=== PATIENT | female | born 1970 ===

== ENCOUNTER 2020-08-14 11:19 | Day surgery (SDC) | payer OTHER, SELFPAY ==
[2020-08-10 09:01] VITALS: BMI 29.7
--- NOTE | 2020-08-13 11:56 | HO.ANESPROP2 ---
Documented by User: Val Boateng 08/13/20 11:57 HPI - Anesthesia Eval Consult details Narrative: 50yo F for Colonoscopy PMFSH Past Medical History Medical History Fatty liver Hiatal hernia Iron deficiency anemia Low blood sugar Surgical History Surgical History Hx of cholecystectomy Hx of esophagogastroduodenoscopy Hx of gastric bypass Hx of laparoscopic gastric banding Social History Social History Smoking Status: Unknown if ever smoked Use of substances other than those prescribed or required for medical reasons: No Advance Directives: No Advance Directives Information Provided: No Advance Directives on File: No Meds Allergies Allergy/AdvReac Type Severity Reaction Status Date / Time No Known Allergies Allergy Unverified 08/10/20 09:00 [NO KNOWN ALLERGIES] Home Medications Medication Instructions Recorded Confirmed Type ferrous sulfate [iron] 325 mg PO DAILY 08/10/20 08/10/20 History Exam Exam Date and Time: August 13, 2020 1156 Height,Weight and Vital Signs: Height 5 ft 5 in Weight 81.193 kg Pertinent Lab Results Pertinent Lab Results: Laboratory Tests 04/20/20 09:45 WBC 4.0 L Hgb 9.0 L Hct 31.9 L Plt Count 152 L Assessment and Plan Assessment Anesthesia Assessment: Chart Reviewed Documented by User: Karol Burleson 08/14/20 11:52 PMFSH Past Medical History Medical History Fatty liver Hiatal hernia Iron deficiency anemia Low blood sugar Surgical History Surgical History Hx of cholecystectomy Hx of esophagogastroduodenoscopy Hx of gastric bypass Hx of laparoscopic gastric banding Social History Social History Smoking Status: Unknown if ever smoked Use of substances other than those prescribed or required for medical reasons: No Advance Directives: No Advance Directives Information Provided: No Advance Directives on File: No Meds Allergies Allergy/AdvReac Type Severity Reaction Status Date / Time No Known Allergies Allergy Unverified 08/10/20 09:00 [NO KNOWN ALLERGIES] Home Medications Medication Instructions Recorded Confirmed Type ferrous sulfate [iron] 325 mg PO DAILY 08/10/20 08/10/20 History Exam Airway Mallampati Class: II TM Dist: >3cm Neck ROM: Full Assessment and Plan Assessment Anesthesia Assessment: Anesthesia Plan Discussed and Chart Reviewed Final Anesthetic Review NPO: Yes ASA Class: II Final Preanesthetic Review: No Changes in Pt Med Stat, Meds/Allgs Chart Reviewed, Consent Obtained/Reviewed and Anes Risks/Benef Reviewed Patient Risk: Low Procedure Risk: Low Assessment/Block/Sedation in SS: Assess/Block/Sedation-SS Anesthetic Plan Anesthetic Plan: MAC: Disposition: Standard PACU
[2020-08-14] VITALS (7 sets, daily range): BP systolic 91–139; BP diastolic 46–69; PULSE 58–67; RESP 16–18; TEMP 36.2–36.8; O2SAT 98–100
[2020-08-14] MEDS: Lactated Ringers 1,000 ML 100 ML IVCONT (12:01)
--- NOTE | 2020-08-14 13:27 | PM.OP ---
Brief Operative Note Date of Service: 08/14/20 Pre-op diagnosis: Screening Post-op diagnosis: other (Diverticulosis, Internal hemorrhoids) Procedure: Colonoscopy to the cecum and TI Surgeon: Alex Peter Anesthesia: MAC Estimated blood loss (mL): 0 Pathology: none sent Condition: stable Disposition: PACU
--- NOTE | 2020-08-14 14:01 | OP_ITS ---
SURGEON: Alex Peter MD INDICATIONS: The patient presents for evaluation of colorectal cancer screening. Full consent has been obtained from her for this, including risks of bleeding and perforation. PREOPERATIVE DIAGNOSIS: Colorectal cancer screening. POSTOPERATIVE DIAGNOSIS: Colorectal cancer screening, sigmoid diverticulosis, and internal hemorrhoids. PROCEDURE PERFORMED: Colonoscopy to the cecum and terminal ileum. ESTIMATED BLOOD LOSS: COMPLICATIONS: ANESTHESIA: Monitored anesthesia care. ASSISTANTS: SPECIMENS: DESCRIPTION OF PROCEDURE: The patient was placed in the left lateral decubitus position. The digital rectal exam revealed no abnormalities. An Olympus video pediatric colonoscope was entered into the rectum and advanced easily to the cecum. Once in the cecum, I did identify normal-appearing cecal pouch with appendiceal orifice and a normal-appearing ileocecal valve. The terminal ileum was cannulated and appeared normal. The scope was withdrawn back in the colon. The entire cecum and ileocecal valve appeared normal. The scope was then slowly withdrawn assessing all mucosal surfaces carefully. Preparation was excellent. I did not visualize any sign of polyps, colitis, nor angiodysplasia. There were occasional diverticula noted in the sigmoid colon. In the rectum, scope was retroflexed visualizing internal hemorrhoids, but no other pathology. The rectal mucosa appeared normal. The scope was straightened and withdrawn from the patient. She tolerated the procedure well and was returned to the recovery area in stable condition. IMPRESSION: 1. Occasional sigmoid diverticulosis. 2. Small internal hemorrhoids. PLAN: Given the negative exam and negative family history, I would recommend a followup colonoscopy in 10 years for further screening. At this point, she will otherwise see me on a p.r.n. basis. Alex Peter MD RMGeraldine/MODL / [id number]
--- NOTE | 2020-08-14 14:30 | HO.POSTANES ---
Post Anesthesia Evaluation Post Anesthesia Evaluation Vital Signs: Vital Signs Temp Pulse Resp BP Pulse Ox 08/14/20 14:08 97.3 F 60 16 122/61 100 08/14/20 13:52 60 16 126/69 100 08/14/20 13:37 65 16 117/67 100 08/14/20 13:33 60 105/64 08/14/20 13:27 59 97/46 L 08/14/20 13:23 97.2 F 58 16 91/48 L 98 08/14/20 11:47 98.3 F 67 18 139/65 98 Anesthesia: Monitored Mental Status: Awake Pain Control: Satisfactory Nausea/Vomiting: None Hydration: Adequate Anesthesia-Related Issues: No Anes. Related Issues
== END 2020-08-14 14:37 | disposition home or self-care (01) ==
PROVIDERS: PCP Internal Medicine; Visit Provider Internal Medicine
PROC: 0DJD8ZZ Inspection of Lower Intestinal Tract, Via Natural or Artificial Opening Endoscopic (ICD-10-PCS; CPT 45378; principal; 2020-08-14 12:20)
DX: Z12.11 Encounter for screening for malignant neoplasm of colon (principal); K57.30 Diverticulosis of large intestine without perforation or abscess without bleeding; K64.8 Other hemorrhoids; D50.9 Iron deficiency anemia, unspecified; K74.60 Unspecified cirrhosis of liver; Z90.49 Acquired absence of other specified parts of digestive tract; Z98.84 Bariatric surgery status; Z79.899 Other long term (current) drug therapy
CPT/HCPCS: 45378

== ENCOUNTER 2021-08-16 10:30 | Outpatient (REF) | payer OTHER, SELFPAY ==
[2021-08-16 11:01] LABS: MANUAL DIFF FLAG NO
[2021-08-16 11:31] LABS: Basophils Percent Auto 0.3 % (0-2); Eosinophils Absolute Auto 0.1 X10*3/uL (0.0-0.4); Eosinophils Percent Auto 1.4 % (0-4); Hematocrit 29.4 % (37.0-47.0); Imm Gran Abs Auto 0.01 X10*3/uL (0.00-0.03); Imm Gran Pct Auto 0.3 % (0.0-0.4); Lymphocytes Absolute Auto 0.8 X10*3/uL (1.2-4.9); Lymphocytes Percent Auto 21.1 % (20-40); Mean Corpuscular HGB Conc 27.2 g/dl (31.0-35.0); Mean Corpuscular Hemoglobin 17.6 pg (27.0-33.0); Mean Platelet Volume 8.1 fL (9.4-12.3); Monocytes Absolute Auto 0.4 X10*3/uL (0.1-1.2); Monocytes Percent Auto 9.5 % (2-11); Neutrophils Absolute Auto 2.5 x10*3/uL (2.0-8.3); Neutrophils Percent Auto 67.4 % (45-73); Platelet Count 113 X10*3/uL (160-400); Red Blood Count 4.54 X10*6/uL (4.20-5.50); Red Cell Distribution Width 17.8 % (11.0-16.0); White Blood Count 3.7 X10*3/uL (4.8-10.8)
[2021-08-16 11:33] LABS: Mean Corpuscular Volume 64.8 fL (80.0-98.0)
[2021-08-16 12:11] LABS: Alanine Aminotransferase 18 U/L (0-31); Albumin Level 4.4 g/dL (3.5-5.0); Alkaline Phosphatase 66 U/L (39-117); Anion Gap 11 (12-20); Aspartate Amino Transferase 22 U/L (5-31); Bilirubin Total 0.5 mg/dL (0.0-1.0); Blood Urea Nitrogen 14 mg/dL (9-16); Calcium 9.3 mg/dL (8.4-10.2); Carbon Dioxide 27 mmol/L (22-29); Chloride 107 mmol/L (96-108); Cholesterol 126 mg/dL; Estimated Glomerular Filt Rate > 60; Glucose Random 99 mg/dL (60-115); HDL Cholesterol 23 mg/dL; LDL Cholesterol Calculated 78 mg/dl; Potassium 4.6 mmol/L (3.3-5.1); Sodium 140 mmol/L (135-145); Total Protein 6.8 g/dL (6.5-8.0); Triglycerides 128 mg/dL
[2021-08-16 12:34] LABS: Thyroid Stimulating Hormone 1.63 uIU/mL (0.32-4.0)
[2021-08-16 12:44] LABS: Vitamin B12 245 pg/mL (200-900)
== END 2021-08-16 10:31 | disposition home or self-care (01) ==
LOC: HO.LAB 10:30
PROVIDERS: PCP Internal Medicine; Visit Provider Internal Medicine
DX: D50.8 Other iron deficiency anemias (principal); E78.2 Mixed hyperlipidemia; M25.521 Pain in right elbow; M54.89 Other dorsalgia; R74.01 Elevation of levels of liver transaminase levels
CPT/HCPCS: 36415; 80053; 80061; 82607; 84443; 85025

== ENCOUNTER → 2021-09-07 15:03 | Outpatient (BNV) | payer OTHER, SELFPAY | PROVIDERS: PCP Internal Medicine; Referring Provider Internal Medicine; Visit Provider Internal Medicine Medical Oncology | DX: D61.818 Other pancytopenia (principal); D50.9 Iron deficiency anemia, unspecified | CPT/HCPCS: 99213; 99214 ==

== ENCOUNTER 2021-09-24 07:59 | Outpatient (REF) | payer OTHER, SELFPAY | END 2021-09-24 08:00 | disposition home or self-care (01) | LOC: HO.MDS 07:59 | PROVIDERS: PCP Internal Medicine; Visit Provider Internal Medicine Medical Oncology | DX: D50.9 Iron deficiency anemia, unspecified (principal) | CPT/HCPCS: 96365; J1200; Q0163 ==

== ENCOUNTER → 2022-02-14 13:21 | Outpatient (BNVA) | payer OTHER, SELFPAY | PROVIDERS: PCP Internal Medicine; Visit Provider Surgery | DX: L72.3 Sebaceous cyst (principal); Z98.84 Bariatric surgery status | CPT/HCPCS: 11403 ==

== ENCOUNTER 2022-02-18 08:11 | Outpatient (REF) | payer OTHER, SELFPAY ==
--- NOTE | ~2022-02-18 | US_ITS ---
EXAMINATION: US ABDOMEN COMPLETE CLINICAL INFORMATION: Thrombocytopenia. Splenomegaly. COMPARISON: Ultrasound abdomen complete 03/19/2019 and 09/14/2016. CT abdomen and pelvis 01/25/2018. TECHNIQUE: Real-time imaging of the abdominal viscera. FINDINGS: PANCREAS: Normal. ABDOMINAL AORTA: The proximal, mid, and distal segments are normal in caliber. INFERIOR VENA CAVA: Visualized portions are normal. LIVER: The liver is normal in size. The liver contour is normal. There is heterogeneously increased liver parenchymal echogenicity. No focal hepatic lesion. There is no intrahepatic biliary duct dilatation seen. GALLBLADDER: Surgically absent. COMMON BILE DUCT: Normal in caliber measuring 0.6 cm in diameter. RIGHT KIDNEY: Normal. No hydronephrosis. No renal calculi or focal parenchymal lesions. The kidney measures 10.1 cm in maximum dimension. LEFT KIDNEY: Normal. No hydronephrosis. No renal calculi or focal parenchymal lesions. The kidney measures 10.1 cm in maximum dimension. SPLEEN: At the upper pole, 2.2 x 2.2 x 2.0 cm and 1.2 x 0.9 x 0.9 cm hyperechoic, circumscribed foci are seen, possibly benign hemangiomas. The spleen measures 15.1 cm in maximum dimension. FREE FLUID: None. US/US abdomen complete IMPRESSION: 1. There is heterogeneously increased in hepatic echotexture, consistent with fatty infiltration or hepatocellular disease. Please correlate clinically. No focal hepatic mass or intrahepatic biliary dilatation is seen. 2. There is splenomegaly. There are new hyperechoic foci within the spleen. These may represent benign hemangiomas, although the exact etiologies are indeterminate. These could be more fully evaluated with dynamic CT or MRI, if clinically indicated.
== END 2022-02-18 08:12 | disposition home or self-care (01) ==
LOC: HO.US 08:11
PROVIDERS: Visit Provider Internal Medicine Medical Oncology
DX: D69.6 Thrombocytopenia, unspecified (principal); K75.81 Nonalcoholic steatohepatitis (NASH)
CPT/HCPCS: 76700

== ENCOUNTER 2022-06-27 15:25 | Outpatient (REF) | payer OTHER, SELFPAY ==
[2022-06-27 15:42] LABS: MANUAL DIFF FLAG NO
[2022-06-27 16:35] LABS: Basophils Percent Auto 0.2 % (0-2); Eosinophils Absolute Auto 0.1 X10*3/uL (0.0-0.4); Eosinophils Percent Auto 1.5 % (0-4); Hematocrit 38.6 % (37.0-47.0); Hemoglobin 13.1 g/dl (12.0-16.0); Imm Gran Abs Auto 0.01 X10*3/uL (0.00-0.03); Imm Gran Pct Auto 0.2 % (0.0-0.4); Lymphocytes Absolute Auto 1.4 X10*3/uL (1.2-4.9); Lymphocytes Percent Auto 25.9 % (20-40); Mean Corpuscular HGB Conc 33.9 g/dl (31.0-35.0); Mean Corpuscular Hemoglobin 27.6 pg (27.0-33.0); Mean Corpuscular Volume 81.4 fL (80.0-98.0); Mean Platelet Volume 9.1 fL (9.4-12.3); Monocytes Absolute Auto 0.4 X10*3/uL (0.1-1.2); Monocytes Percent Auto 7.7 % (2-11); Neutrophils Absolute Auto 3.4 x10*3/uL (2.0-8.3); Neutrophils Percent Auto 64.5 % (45-73); Platelet Count 115 X10*3/uL (160-400); Red Blood Count 4.74 X10*6/uL (4.20-5.50); Red Cell Distribution Width 14.1 % (11.0-16.0); White Blood Count 5.2 X10*3/uL (4.8-10.8)
[2022-06-27 17:19] LABS: Alanine Aminotransferase 20 U/L (0-31); Alkaline Phosphatase 71 U/L (39-117); Aspartate Amino Transferase 20 U/L (5-31); Bilirubin Direct 0.2 mg/dL (0.0-0.5); Bilirubin Total 0.5 mg/dL (0.0-1.0); Ferritin 14 ng/mL (10-250); Iron 30 mcg/dL (30-160); Percent Iron Saturation 10 % (15-50); Total Iron Binding Capacity 307 mcg/dL (228-428); Total Protein 6.2 g/dL (6.5-8.0); Unsaturated Iron Binding 277 ug/dL
[2022-06-27 17:29] LABS: Folate 7.4 ng/mL (> or = 4.0); Vitamin B12 269 pg/mL (200-900)
[2022-06-29 14:13] LABS: Gliadin Deamidated IgA Ab <1.0 U/mL; Gliadin Deamidated IgG Ab <1.0 U/mL
[2022-06-29 16:23] LABS: Immunoglobulin A 118 mg/dL (47-310)
[2022-06-30 13:54] LABS: Endomysial IgA Antibody Negative (Negative)
[2022-06-30 15:38] LABS: Transglutaminase Ab IgG <1.0 U/mL; Transglutaminase IgA <1.0 U/mL
== END 2022-06-27 15:26 | disposition home or self-care (01) ==
LOC: HO.LAB 15:25
PROVIDERS: PCP Internal Medicine; Visit Provider Internal Medicine
DX: D50.9 Iron deficiency anemia, unspecified (principal); R19.7 Diarrhea, unspecified
CPT/HCPCS: 36415; 80076; 82607; 82728; 82746; 82784; 83540; 85025; 86231; 86258; 86364

== ENCOUNTER → 2022-12-28 14:10 | Outpatient (BNVA) | payer OTHER, SELFPAY | PROVIDERS: PCP Internal Medicine; Visit Provider Advanced Practice Midwife ==

== ENCOUNTER 2023-01-23 14:27 | Outpatient (REF) | payer OTHER, SELFPAY ==
--- NOTE | ~2023-01-23 | US_ITS ---
EXAMINATION: US PELVIS COMPLETE CLINICAL INFORMATION: Excessive and frequent menses; the last menstrual period was on 12/06/2022. COMPARISON: Pelvic ultrasound dated 09/14/2016. TECHNIQUE: Transabdominal imaging was performed. FINDINGS: The uterus is of normal size and echogenicity, measuring 10.2 x 6.1 x 7.5 cm. The uterus is anteverted and anteflexed. A regular, homogeneous endometrium is identified measuring 0.7 cm. Nabothian cysts are seen within the cervix. FIBROIDS: There is 1 fibroid seen. 1. Location: Mid fundus, myometrial. Size: 4.2 x 3.2 x 4.1 cm. Prior: 3.2 x 3.0 x 3.2 cm. Fibroid characteristics: Heterogeneously hypoechoic. Both ovaries are of normal size and echogenicity. The right ovary measures 2.4 x 2.3 x 2.7 cm for a volume of 7.8 mL. The left ovary measures 3.7 x 1.7 x 2.4 cm for a volume of 7.9 mL. There are bilateral ovarian follicles. A 1.1 cm dominant left ovarian follicle is of incidental note. There is no pelvic free fluid. No adnexal masses seen. Bilateral Essure fallopian tube closure coils are noted. US/US pelvic and transvaginal IMPRESSION: 1. A uterine fibroid is seen, as detailed. 2. Nabothian cysts are seen within the cervix. 3. A 1.1 cm left ovarian simple, dominant follicle is incidentally noted. This requires no imaging follow-up.
== END 2023-01-23 14:28 | disposition home or self-care (01) ==
LOC: HO.US 14:27
PROVIDERS: PCP Internal Medicine; Visit Provider Advanced Practice Midwife
DX: N92.0 Excessive and frequent menstruation with regular cycle (principal); N92.3 Ovulation bleeding
CPT/HCPCS: 76830; 76856

== ENCOUNTER 2023-02-23 13:19 | Outpatient (AMB) | payer OTHER, SELFPAY ==
--- NOTE | 2023-02-23 13:19 | A.OFFVIS_ITS ---
Intake Intake Visit Reasons: US follow up/ ok per Natalie Allergies No Known Allergies [NO KNOWN ALLERGIES] Allergy (Unverified 02/23/23 13:19) Medication List - Last Reconciled 02/23/23 by Natalie Tim CNM loratadine 10 mg PO DAILY Is last menstrual period known: Yes Last menstrual period: 02/13/23 HPI US follow up/ ok per Natalie HPI Details This is a tele visit to discuss patient's ultrasound results done a month ago there were some challenges with scheduling and patient is anxious to get the results. This is all in follow-up of heavy periods as well as some intermenstrual spotting and all of this was discussed at a has been that with a plan towards endometrial biopsy as well after this ultrasound. [facility] Medical History Fatty liver Hiatal hernia Iron deficiency anemia Low blood sugar Surgical History Hx of cholecystectomy Hx of esophagogastroduodenoscopy Hx of gastric bypass Hx of laparoscopic gastric banding Family History Mother Diabetes Pancreas cancer Hypertension Father Heart abnormality Hypertension Social History Household Members: Spouse, Family and Children Housing: House Are you a primary transitional care liaison to a significant other at home: No Do you presently have visiting nurse or other home services: No Patient Tobacco Use Status: Never used Tobacco service: No Current occupational status: employed 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[employer] Female Reproductive History Menstrual Age of Menarche: 10 Date of last menstrual period: 02/13/23 control method: permanent sterilization Permanent Sterilization: Essure and other (essure...) Total pregnancies: 4 Number of Living Children: 3 Ab spontaneous: 1 Results Reviewed Results Reviewed: [address] [address] Ultrasound Report Signed Patient: Erin Mccord MR#: [id number] : 1970 Acct:[id number] Age/Sex: 52 / F ADM Date: 01/23/23 Loc: HO.US Attending Dr: Natalie Tim CNM Ordering Physician: Natalie Tim CNM Date of Service: 01/23/23 Procedure(s): US pelvic and transvaginal Accession Number(s): [id number] cc: ElmoreNatalie JUAN CARLOS~ EXAMINATION: US PELVIS COMPLETE CLINICAL INFORMATION: Excessive and frequent menses; the last menstrual period was on 12/06/2022. COMPARISON: Pelvic ultrasound dated 09/14/2016. TECHNIQUE: Transabdominal imaging was performed. FINDINGS: The uterus is of normal size and echogenicity, measuring 10.2 x 6.1 x 7.5 cm. The uterus is anteverted and anteflexed. A regular, homogeneous endometrium is identified measuring 0.7 cm. Nabothian cysts are seen within the cervix. FIBROIDS: There is 1 fibroid seen. ?1. Location: Mid fundus, myometrial. ?? ? Size: 4.2 x 3.2 x 4.1 cm. Prior: 3.2 x 3.0 x 3.2 cm. ?? ? Fibroid characteristics: Heterogeneously hypoechoic. Both ovaries are of normal size and echogenicity. The right ovary measures 2.4 x 2.3 x 2.7 cm for a volume of 7.8 mL. The left ovary measures 3.7 x 1.7 x 2.4 cm for a volume of 7.9 mL. There are bilateral ovarian follicles. A 1.1 cm dominant left ovarian follicle is of incidental note. There is no pelvic free fluid. No adnexal masses seen. Bilateral Essure fallopian tube closure coils are noted. US/US pelvic and transvaginal IMPRESSION: ? 1. A uterine fibroid is seen, as detailed. ? 2. Nabothian cysts are seen within the cervix. ? 3. A 1.1 cm left ovarian simple, dominant follicle is incidentally noted. This requires no imaging follow-up. ? ? Dictated By: Vernon Ruvalcaba MD Signed By: <Electronically signed by Vernon Ruvalcaba MD in OV> 01/26/23 1600 DD/ 1535 TD/TT:? Occupational Therapy Manager: ELIA Assessment & Plan Assessment & Plan (1) Intermenstrual bleeding: Comment: Once for 2 days a couple of months ago. Plan ultrasound an endometrial biopsy Code(s): N92.3 - Ovulation bleeding (2) Menorrhagia with regular cycle: Code(s): N92.0 - Excessive and frequent menstruation with regular cycle (3) Fibroid uterus: Code(s): D25.9 - Leiomyoma of uterus, unspecified (4) History of bilateral ligation of fallopian tubes: Code(s): Z98.51 - Tubal ligation status Plan I again reviewed the patient's bleeding pattern of heavy periods that really drain her as well as the intermenstrual spotting that she had been having. I reviewed her ultrasound findings in detail including the very normal nabothian cysts and ovarian follicles but also the a 4 cm fibroid and the normal endometrium but still recommended an endometrial biopsy discussed the possible role of a Mirena to help manage her symptoms and while she was not as interested in it before she would rather avoid surgery so she might consider it. Will plan on her next visit being for endometrial biopsy and sometime after that will be probably a Mirena insertion if all is well discussed that the fibro could could definitely contribute to the heavy bleeding but the antrum and distal spotting still should be evaluated 1st before we proceed to a Mirena. The ultrasound also did she show evidence of the Essure coils which she had not remembered but she had placed at [facility] and this refreshed her memory. Telehealth Telehealth Location of provider rendering services: practice address Location of patient: address on file Patient Identification confirmed using: Name, : Yes Telehealth method: voice only Patient verbally consented to treatment: Yes Patient verbally consented to billing insurance company: Yes Patient informed of any privacy concerns related to visit: Yes Coding Level of Care Code Tele Est Pt Level 3 (27260) Diagnoses Intermenstrual bleeding N92.3 Menorrhagia with regular cycle N92.0 Fibroid uterus D25.9 History of bilateral ligation of fallopian tubes Z98.51 Time Spent (min) 25 Comment 3 cr/17 video/5 charting
== END 2023-02-24 16:35 | disposition home or self-care (01) ==
PROVIDERS: PCP Internal Medicine; Visit Provider Advanced Practice Midwife
DX: N92.3 Ovulation bleeding (principal); N92.0 Excessive and frequent menstruation with regular cycle; D25.9 Leiomyoma of uterus, unspecified; Z98.51 Tubal ligation status
CPT/HCPCS: 99213

== ENCOUNTER → 2023-02-23 13:19 | Outpatient (BNVA) | payer OTHER, SELFPAY | PROVIDERS: PCP Internal Medicine; Visit Provider Advanced Practice Midwife ==

== ENCOUNTER 2023-03-06 13:48 | Outpatient (AMB) | payer OTHER, SELFPAY ==
--- NOTE | 2023-03-06 14:02 | A.OFFVIS_ITS ---
Intake Vital Signs 03/06/23 14:12 Height 5 ft 5 in Weight 172 lb BMI 28.6 BP 138/62 Intake Visit Reasons: emb Intake Note: requesting a mammogram Acid Bath Mixer Required: No Information Interpreted: non-clinical & clinical [employer]: [employer] Present (Aidyn) Allergies No Known Allergies [NO KNOWN ALLERGIES] Allergy (Verified 03/06/23 14:04) Medication List - Last Reconciled 03/06/23 by Chanelle Tim CNM loratadine 10 mg PO DAILY Is last menstrual period known: Yes Last menstrual period: 02/11/23 Post menopausal: No Patient : No HPI emb HPI Details patient is here for an endometrial biopsy. She basically gets regular periods but they are heavier and cramp ear and more painful and they do not come exactly when she expects them to come. sometimes they can be a week earlier week late but they are generally monthly. There was 1 episode noted in the past for enter menstrual bleeding. She had an ultrasound which showed a small fibroid and other essentially normal findings. With discussed that this is being done to evaluate the lining of her uterus and make sure there no abnormal cells there. If there are then I will have her see Dr. Nye and figure out a plan to go from there if there are not 1 option would be to consider a Mirena IU S which she would prefer so she could avoid surgery. She had voiced interest in doing something definitive in the past but if a Mirena would help she would be up for that. [facility] Medical History (Updated 03/06/23 @ 15:07 by Chanelle Tim CNM) Fatty liver Hiatal hernia Iron deficiency anemia Low blood sugar Surgical History (Updated 03/06/23 @ 14:08 by SMA Mandie) Hx of cholecystectomy Hx of esophagogastroduodenoscopy Hx of gastric bypass Hx of laparoscopic gastric banding Hx of tubal ligation Family History Mother Diabetes Pancreas cancer Hypertension Father Heart abnormality Hypertension Social History Household Members: Spouse, Family and Children Housing: House Are you a primary wild animal caretaker to a significant other at home: No Do you presently have visiting nurse or other home services: No Patient Tobacco Use Status: Never used Tobacco service: No Current occupational status: employed 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 Reproductive History Menstrual Age of Menarche: 10 Duration of menses: 6-7 days Date of last menstrual period: 02/11/23 control method: other (tubal ligation4) Total pregnancies: 4 Number of Living Children: 3 Ab spontaneous: 1 Date of last pap smear: 09/12/06 (negative) Physical Exam Vital Signs: Last Vital Signs BP 138/62 03/06/23 14:12 BMI result Body Mass Index 28.6 External Female Exam: normal external appearance Speculum Exam - Vagina: normal appearance of the vagina and normal vaginal discharge Speculum Exam - Cervix: normal appearance of the cervix Bimanual exam- vagina & uterus: normal bimanual exam, uterine size normal, consistency normal, uterine mobility normal, uterine shape normal and non-tender Bimanual Exam- Adnexa, other: normal adnexae, no masses and No adnexal tenderness Office Procedures Endometrial Biopsy Details: Patient is here for an endometrial biopsy. I explained the procedure and what the goal of the obtaining the sample is, and why we need need to do it today. Patient signed consent form, and appropriate testing was done beforehand. test is negative Patient was placed in recumbent position. Speculum was placed to visualize cervix the cervix was cleansed with Betadine. A tenaculum was gently placed to straighten the axis. The uterus was sounded to 7.5 cm. The endometrial biopsy Pipelle was inserted gently, and withdrawn to obtain sampling of the endometrial tissue for 4 passes. The tenaculum was removed and the cervix was swabbed gently as any bleeding subsided. the patient sat up after removal of the speculum. She is to return for discussion of the results and review of any other testing. [id number] Biopsy Results AMB Test Urine AMB Test Urine Negative Last Edit by JENNIFER Suarez on 03/06/23 14:31 Results Reviewed Results Reviewed: Laboratory Last Values [facility]st Clinic Negative 03/06/23 14:30 Patient: Erin Mccord MR#: [id number] : 1970 Acct:[id number] Age/Sex: 52 / F ADM Date: 01/23/23 Loc: . Attending Dr: Chanelle Tim CNM Ordering Physician: Chanelle Tim CNM Date of Service: 01/23/23 Procedure(s): US pelvic and transvaginal Accession Number(s): [id number] cc: Chanelle Tim CNM~ EXAMINATION: US PELVIS COMPLETE CLINICAL INFORMATION: Excessive and frequent menses; the last menstrual period was on 12/06/2022. COMPARISON: Pelvic ultrasound dated 09/14/2016. TECHNIQUE: Transabdominal imaging was performed. FINDINGS: The uterus is of normal size and echogenicity, measuring 10.2 x 6.1 x 7.5 cm. The uterus is anteverted and anteflexed. A regular, homogeneous endometrium is identified measuring 0.7 cm. Nabothian cysts are seen within the cervix. FIBROIDS: There is 1 fibroid seen. ?1. Location: Mid fundus, myometrial. ?? ? Size: 4.2 x 3.2 x 4.1 cm. Prior: 3.2 x 3.0 x 3.2 cm. ?? ? Fibroid characteristics: Heterogeneously hypoechoic. Both ovaries are of normal size and echogenicity. The right ovary measures 2.4 x 2.3 x 2.7 cm for a volume of 7.8 mL. The left ovary measures 3.7 x 1.7 x 2.4 cm for a volume of 7.9 mL. There are bilateral ovarian follicles. A 1.1 cm dominant left ovarian follicle is of incidental note. There is no pelvic free fluid. No adnexal masses seen. Bilateral Essure fallopian tube closure coils are noted. US/US pelvic and transvaginal IMPRESSION: ? 1. A uterine fibroid is seen, as detailed. ? 2. Nabothian cysts are seen within the cervix. ? 3. A 1.1 cm left ovarian simple, dominant follicle is incidentally noted. This requires no imaging follow-up. ? ? Dictated By: Vernon Ruvalcaba MD Signed By: <Electronically signed by Vernon Ruvalcaba MD in OV> 01/26/23 1600 DD/ 1535 TD/TT:? Field Servicer: ELIA Assessment & Plan Assessment & Plan (1) Breast cancer screening: Code(s): Z12.39 - Encounter for other screening for malignant neoplasm of breast (2) Intermenstrual bleeding: Comment: Once for 2 days a couple of months ago. Plan ultrasound an endometrial biopsy Code(s): N92.3 - Ovulation bleeding (3) Fibroid uterus: Code(s): D25.9 - Leiomyoma of uterus, unspecified (4) Menorrhagia with regular cycle: Code(s): N92.0 - Excessive and frequent menstruation with regular cycle Plan I reviewed the plan with her for follow-up. Return to office 1 week for review of the results. discussed already that if there are abnormal cells or anything problematic I will refer her to Dr. Nye if everything is normal and is no atypia then we will consider a Mirena IU S to help manage her heavy periods. . When she went to the front worker the only of appointment she was offered was the and she can not come that day because she will be in [place]. And she asked if it could be a tele health visit but I would prefer to see her before the 17. And I would rather it be in in-person visit just in case there is something difficult to discuss and I would never want to do that over the phone however if it turns out the results are that I got in insufficient sampling I may convert the visit to a telehealth visit so she does not have to come in for visit just to hear that she has to come in some other time to repeat it. Orders: Orders Bacterial Vaginosis Panel Today N93.9 - Abnormal uterine and vaginal bleeding, unspecified CT NG by PCR Today N93.9 - Abnormal uterine and vaginal bleeding, unspecified MM tomosynthesis screening BI Today D25.9 - Leiomyoma of uterus, unspecified, N92.0 - Excessive and frequent menstruation with regular cycle, N92.3 - Ovulation bleeding, Z12.31 - Encounter for screening mammogram for malignant neoplasm of breast, Z12.39 - Encounter for other screening for malignant neoplasm of breast AMB HCG Urine Test Today Z32.02 - Encounter for test, result negative Surgical Today N93.9 - Abnormal uterine and vaginal bleeding, unspecified AMB Endometrial Biopsy Today D25.9 - Leiomyoma of uterus, unspecified, N92.0 - Excessive and frequent menstruation with regular cycle, N92.3 - Ovulation bleeding Coding Level of Care Code Est Pt Level 3 (50946) Diagnoses Breast cancer screening Z12.39 Intermenstrual bleeding N92.3 Fibroid uterus D25.9 Menorrhagia with regular cycle N92.0 CPT Codes Endometrial Biopsy - CPT: 64880-[id number] Biopsy ([id number])
[2023-03-06 14:12] VITALS: BP 138/62; BMI 28.6
== END 2023-03-06 15:19 | disposition home or self-care (01) ==
LOC: HO.HWS 13:48
PROVIDERS: PCP Internal Medicine; Visit Provider Advanced Practice Midwife
DX: N92.3 Ovulation bleeding (principal); D25.9 Leiomyoma of uterus, unspecified; N92.0 Excessive and frequent menstruation with regular cycle; Z32.02 Encounter for pregnancy test, result negative
CPT/HCPCS: 58100; 99213

== ENCOUNTER 2023-03-06 13:48 | Outpatient (REF) | payer OTHER, SELFPAY ==
[2023-03-07 05:58] LABS: CT PCR NOT DETECTED (Not Detect.); NG PCR NOT DETECTED (Not Detect.)
[2023-03-07 12:06] LABS: BV Int Neg Control Negative (Negative); BV Int Pos Control Positive (Positive)
== END 2023-03-06 13:49 | disposition home or self-care (01) ==
LOC: HO.LNP 13:48
PROVIDERS: PCP Internal Medicine; Visit Provider Advanced Practice Midwife
DX: N92.0 Excessive and frequent menstruation with regular cycle (principal); N93.9 Abnormal uterine and vaginal bleeding, unspecified; N92.3 Ovulation bleeding; D25.9 Leiomyoma of uterus, unspecified; Z20.2 Contact with and (suspected) exposure to infections with a predominantly sexual mode of transmission
CPT/HCPCS: 0353U; 58100; 81025; 87480; 87510; 87660; 88305

== ENCOUNTER 2023-03-13 13:02 | Outpatient (AMB) | payer OTHER, SELFPAY ==
--- NOTE | 2023-03-13 13:02 | A.OFFVIS_ITS ---
Intake Intake Visit Reasons: BX results/ ok per Chanelle Awning Frame Maker Required: No Allergies No Known Allergies [NO KNOWN ALLERGIES] Allergy (Verified 03/13/23 13:02) Medication List - Last Reconciled 03/13/23 by Chanelle Tim CNM loratadine 10 mg PO DAILY Is last menstrual period known: Yes Last menstrual period: 02/11/23 Post menopausal: No HPI BX results/ ok per Chanelle HPI Details This is a tele visit to discuss patient's endometrial biopsy results that she had done last week to investigate her heavy crampy bleeding with menses. PFSH Medical History Fatty liver Hiatal hernia Iron deficiency anemia Low blood sugar Surgical History Hx of cholecystectomy Hx of esophagogastroduodenoscopy Hx of gastric bypass Hx of laparoscopic gastric banding Hx of tubal ligation Family History Mother Diabetes Pancreas cancer Hypertension Father Heart abnormality Hypertension Social History Household Members: Spouse, Family and Children Housing: House Are you a primary resident care coordinator to a significant other at home: No Do you presently have visiting nurse or other home services: No Patient Tobacco Use Status: Never used Tobacco service: No Current occupational status: employed 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 Status: DEP REF Collected: 03/06/23 Location: [facility] Received: 03/07/23 Diagnosis Endometrium, biopsy: - Secretory endometrium; no atypia or hyperplasia identified. - Scant fragments of squamous and endocervical epithelium within normal limits. Clinical History AUB Microscopic Description Microscopic sections reviewed. Material Received EMB Gross Description Received in formalin labeled ?EMB? is a 1.3 x 1.0 x 0.35 cm aggregate of multiple irregular and tubular cast fragments of congested and hemorrhagic wang- brown tissue and red-maroon blood.? The specimen is submitted in toto in a si ngle cassette labeled A.? CEDS Copies To ?? Sarah Cardona MD ?? [address] ?? [place] [address] ?? [phone] ?? Chanelle Tim CNM ?? [address] ?? [place] ?? [phone] NOTE:? Unless otherwise stated, all tissue is formalin-fixed and paraffin- embedded.? Some or all of the immunohistochemical tests reported herein may have been developed and their performance characteristics determined by [facility].? They have not been cleared or approved by the U.S. Food and Drug Administration (FDA).? However, the FDA has determined that such clearance or approval is not necessary.? This laboratory is certified under the Clinical Laboratory Improvement Amendments of 1988 (CLIA) as qualified to perform high complexity clinical laboratory testing. [address] [address] Ultrasound Report Signed Patient: Erin Mccord MR#: [id number] : 1970 Acct:[id number] Age/Sex: 52 / F ADM Date: 01/23/23 Loc: [facility]. Attending Dr: Chanelle Tim CNM Ordering Physician: Chanelle Tim CNM Date of Service: 01/23/23 Procedure(s): US pelvic and transvaginal Accession Number(s): [id number] cc: Chanelle Tim CNM~ EXAMINATION: US PELVIS COMPLETE CLINICAL INFORMATION: Excessive and frequent menses; the last menstrual period was on 12/06/2022. COMPARISON: Pelvic ultrasound dated 09/14/2016. TECHNIQUE: Transabdominal imaging was performed. FINDINGS: The uterus is of normal size and echogenicity, measuring 10.2 x 6.1 x 7.5 cm. The uterus is anteverted and anteflexed. A regular, homogeneous endometrium is identified measuring 0.7 cm. Nabothian cysts are seen within the cervix. FIBROIDS: There is 1 fibroid seen. ?1. Location: Mid fundus, myometrial. ?? ? Size: 4.2 x 3.2 x 4.1 cm. Prior: 3.2 x 3.0 x 3.2 cm. ?? ? Fibroid characteristics: Heterogeneously hypoechoic. Both ovaries are of normal size and echogenicity. The right ovary measures 2.4 x 2.3 x 2.7 cm for a volume of 7.8 mL. The left ovary measures 3.7 x 1.7 x 2.4 cm for a volume of 7.9 mL. There are bilateral ovarian follicles. A 1.1 cm dominant left ovarian follicle is of incidental note. There is no pelvic free fluid. No adnexal masses seen. Bilateral Essure fallopian tube closure coils are noted. US/US pelvic and transvaginal IMPRESSION: ? 1. A uterine fibroid is seen, as detailed. ? 2. Nabothian cysts are seen within the cervix. ? 3. A 1.1 cm left ovarian simple, dominant follicle is incidentally noted. This requires no imaging follow-up. ? ? Dictated By: Vernon Ruvalcaba MD Signed By: <Electronically signed by Vernon Ruvalcaba MD in OV> 01/26/23 1600 DD/ 1535 TD/TT:? Medical Data Analyst: ELIA Assessment & Plan Assessment & Plan (1) Fibroid uterus: Code(s): D25.9 - Leiomyoma of uterus, unspecified (2) Intermenstrual bleeding: Comment: Once for 2 days a couple of months ago. Plan ultrasound an endometrial biopsy; no atypia or hyperplasia.-plan Mirena. Code(s): N92.3 - Ovulation bleeding (3) Menorrhagia with regular cycle: Code(s): N92.0 - Excessive and frequent menstruation with regular cycle Plan Reviewed her results and the previous ultrasound and the previous discussions and rationale for considering a Mirena IU S and why it might help her situation discussed rationale for placing it at the beginning of her. She gets periods normally about 5 days long and there heaviest in crampy assist are on day 2 and 3. She is going to call when she gets her menses and we will endeavor to get her in on 1 of those days so that we can optimize ease of insertion at that time. Also discussed alternatives and reasons why it might be useful to try the Mirena 1st she has had a Mirena in the past so was somewhat familiar with it. She is going to [place] on for a long weekend and she is expecting her menses either tomorrow or the next day and may call but it may not work out in the cycle so we will try to planet for the future if that works out. Telehealth Telehealth Location of provider rendering services: practice address Location of patient: address on file Patient Identification confirmed using: Name, : Yes Telehealth method: video Patient verbally consented to treatment: Yes Patient verbally consented to billing insurance company: Yes Patient informed of any privacy concerns related to visit: Yes Minutes spent on Phone/Video with Pt.: 11 (plus cr and charting) Coding Level of Care Code Tele Est Pt Level 3 (50477) Diagnoses Fibroid uterus D25.9 Intermenstrual bleeding N92.3 Menorrhagia with regular cycle N92.0 Time Spent (min) 18 Comment 2 chart review 11 speaking with patient by video/5 chart
== END 2023-03-13 16:25 | disposition home or self-care (01) ==
LOC: HO.HWS 13:02
PROVIDERS: PCP Internal Medicine; Visit Provider Advanced Practice Midwife
DX: D25.9 Leiomyoma of uterus, unspecified (principal); N92.3 Ovulation bleeding; N92.0 Excessive and frequent menstruation with regular cycle
CPT/HCPCS: 99213

== ENCOUNTER → 2023-03-13 13:02 | Outpatient (BNVA) | payer OTHER, SELFPAY | PROVIDERS: PCP Internal Medicine; Visit Provider Advanced Practice Midwife ==

== ENCOUNTER → 2023-04-18 12:58 | Outpatient (BNVA) | payer OTHER, SELFPAY | PROVIDERS: PCP Internal Medicine; Visit Provider Advanced Practice Midwife ==

== ENCOUNTER 2023-05-06 08:25 | Outpatient (REF) | payer OTHER, SELFPAY ==
--- NOTE | ~2023-05-06 | MM_ITS ---
EXAMINATION: MM SCREENING DIGITAL BREAST TOMOSYNTHESIS, BILATERAL CLINICAL INFORMATION: Screening. Asymptomatic. COMPARISON: Mammography: This study is compared with prior exams dating back to 2010. TECHNIQUE: Digital breast tomosynthesis is performed in both the craniocaudal and mediolateral oblique views along with computer-aided detection (CAD). Synthesized 2D images are generated from the tomosynthesis. FINDINGS: There are scattered areas of fibroglandular density (ACR BI-RADS breast composition Category b). There are no significant masses, abnormal calcifications, or other abnormalities. MM/MM tomosynthesis screening BI IMPRESSION: No mammographic evidence of malignancy. ASSESSMENT: BI-RADS BI-RADS 1 - Negative RECOMMENDATION: Routine annual mammography screening. 1 year F/U This examination should not preclude the clinical evaluation of a suspicious palpable abnormality. This patient's information was entered into a reminder system with a target due date for their next mammogram.
== END 2023-05-06 08:26 | disposition home or self-care (01) ==
LOC: HO.MAMMO 08:25
PROVIDERS: PCP Internal Medicine; Visit Provider Advanced Practice Midwife
DX: Z12.31 Encounter for screening mammogram for malignant neoplasm of breast (principal)
CPT/HCPCS: 77063; 77067

== ENCOUNTER → 2023-05-06 08:30 | Outpatient (BNV) | payer OTHER, SELFPAY | PROVIDERS: PCP Internal Medicine; Visit Provider Radiology Diagnostic Radiology | DX: Z12.31 Encounter for screening mammogram for malignant neoplasm of breast (principal) | CPT/HCPCS: 77063; 77067 ==

== ENCOUNTER 2023-07-13 07:49 | Outpatient (AMB) | payer OTHER, SELFPAY ==
--- NOTE | 2023-07-13 07:52 | A.OFFVIS_ITS ---
Intake Vital Signs 07/13/23 07:57 Height 5 ft 5 in Weight 171 lb 15.369 oz BMI 28.6 BP 120/70 Intake Visit Reasons: IUD check Manager Office Services Required: No Information Interpreted: non-clinical & clinical Supervisor Heavy Equipment: Supervisor Heavy Equipment Present (Keila RODRIGUEZ) Accompanied by: Self / Same As Patient Allergies No Known Allergies [NO KNOWN ALLERGIES] Allergy (Verified 07/13/23 07:59) HPI HPI Comments History of Present Illness Details The patient is presenting for IUD check after 1 st period following IUD insertion. The patient has no complaints except for vaginal spotting PFSH Medical History Hiatal hernia Iron deficiency anemia Fatty liver Low blood sugar Surgical History Hx of tubal ligation Hx of esophagogastroduodenoscopy Hx of laparoscopic gastric banding Hx of cholecystectomy Hx of gastric bypass Family History Mother Diabetes Pancreas cancer Hypertension Father Heart abnormality Hypertension Social History Household Members: Spouse, Family and Children Housing: House Are you a primary health care liaison to a significant other at home: No Do you presently have visiting nurse or other home services: No Patient Tobacco Use Status: Never used Tobacco service: No Current occupational status: employed 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 Reproductive History Menstrual Age of Menarche: 10 control method: progestin IUCD Review of Systems Const All systems reviewed & are unremarkable except as noted in HPI and below Physical Exam Vital Signs: Last Vital Signs BP 120/70 07/13/23 07:57 BMI result Body Mass Index 28.6 General: Yes no CVA tenderness External Female Exam: normal external appearance and normal appearance of the urethra Speculum Exam - Vagina: normal appearance of the vagina, normal palpation, no lesions and no masses Speculum Exam - Cervix: normal appearance of the cervix, normal palpation, no lesions, no masses, nontender and Other cervical findings present (IUD thread in place) Bimanual exam- vagina & uterus: normal bimanual exam, normal palpation, uterine size normal, normal palpation, uterine shape normal, No Cervical tenderness present and non-tender Bimanual Exam- Adnexa, other: normal adnexae Back/Spine/Pelvis Back: no CVA tenderness Assessment & Plan Assessment & Plan (1) IUD check up: Code(s): Z30.431 - Encounter for routine checking of intrauterine contraceptive device Plan: UPT done in the office was negative. Discussed with the patient the finding on physical exam, IUD string in place, the patient was reassured. Instructions given to patient to call in case of temperature above 100.4, severe cramping/pelvic pain, abnormal discharge or abnormal uterine bleeding or if she misses her. Otherwise follow-up at her annual exam appointment. All questions answered, the patient verbalized understanding. Coding Level of Care Code Est Pt Level 3 (88505) Diagnoses IUD check up Z30.431
[2023-07-13 07:57] VITALS: BP 120/70; BMI 28.6
== END 2023-07-13 08:08 | disposition home or self-care (01) ==
LOC: HO.HWS 07:50
PROVIDERS: PCP Internal Medicine; Visit Provider Obstetrics & Gynecology
DX: Z30.431 Encounter for routine checking of intrauterine contraceptive device (principal); Z32.02 Encounter for pregnancy test, result negative
CPT/HCPCS: 99213

== ENCOUNTER → 2023-07-13 07:49 | Outpatient (BNVA) | payer OTHER, SELFPAY | PROVIDERS: PCP Internal Medicine; Visit Provider Obstetrics & Gynecology | DX: Z30.431 Encounter for routine checking of intrauterine contraceptive device (principal) | CPT/HCPCS: 81025 ==

== ENCOUNTER 2024-04-03 11:37 | Outpatient (REF) | payer OTHER, SELFPAY ==
[2024-04-03 11:53] LABS: MANUAL DIFF FLAG NO
[2024-04-03 12:03] LABS: Basophils Percent Auto 0.4 % (0-2); Eosinophils Percent Auto 0.9 % (0-4); Hematocrit 32.3 % (37.0-47.0); Hemoglobin 9.4 g/dl (12.0-16.0); Imm Gran Abs Auto 0.01 X10*3/uL (0.00-0.03); Imm Gran Pct Auto 0.2 % (0.0-0.4); Lymphocytes Absolute Auto 0.7 X10*3/uL (1.2-4.9); Lymphocytes Percent Auto 15.1 % (20-40); Mean Corpuscular HGB Conc 29.1 g/dl (31.0-35.0); Mean Corpuscular Hemoglobin 19.3 pg (27.0-33.0); Mean Corpuscular Volume 66.2 fL (80.0-98.0); Mean Platelet Volume 8.2 fL (9.4-12.3); Monocytes Absolute Auto 0.3 X10*3/uL (0.1-1.2); Neutrophils Absolute Auto 3.6 x10*3/uL (2.0-8.3); Neutrophils Percent Auto 77.4 % (45-73); Red Blood Count 4.88 X10*6/uL (4.20-5.50); Red Cell Distribution Width 17.6 % (11.0-16.0); White Blood Count 4.7 X10*3/uL (4.8-10.8)
[2024-04-03 12:06] LABS: Platelet Count 68 X10*3/uL (160-400)
[2024-04-03 12:39] LABS: Alanine Aminotransferase 14 U/L (0-31); Albumin Level 4.2 g/dL (3.5-5.0); Alkaline Phosphatase 85 U/L (39-117); Anion Gap 12 (12-20); Aspartate Amino Transferase 21 U/L (5-31); Bilirubin Total 0.5 mg/dL (0.0-1.0); Blood Urea Nitrogen 12 mg/dL (9-16); Calcium 8.8 mg/dL (8.4-10.2); Carbon Dioxide 25 mmol/L (22-29); Chloride 108 mmol/L (96-108); Cholesterol 132 mg/dL (<200); Estimated Glomerular Filt Rate > 60; Glucose Random 96 mg/dL (60-115); HDL Cholesterol 30 mg/dL (>40); LDL Cholesterol Calculated 70 mg/dL (<100); Potassium 4.6 mmol/L (3.3-5.1); Sodium 140 mmol/L (135-145); Total Protein 6.9 g/dL (6.5-8.0); Triglycerides 162 mg/dL (<150)
[2024-04-03 13:03] LABS: Folate 11.7 ng/mL (> or = 4.0); Vitamin B12 409 pg/mL (200-900)
== END 2024-04-03 11:38 | disposition home or self-care (01) ==
LOC: HO.LAB 11:37
PROVIDERS: PCP Internal Medicine; Visit Provider Internal Medicine
DX: Z00.01 Encounter for general adult medical examination with abnormal findings (principal); F32.2 Major depressive disorder, single episode, severe without psychotic features; M16.11 Unilateral primary osteoarthritis, right hip; M25.512 Pain in left shoulder; R21 Rash and other nonspecific skin eruption; Z98.84 Bariatric surgery status
CPT/HCPCS: 36415; 80053; 80061; 82607; 82746; 85025

== ENCOUNTER 2024-04-04 16:37 | Outpatient (REF) | payer OTHER, SELFPAY ==
[2024-04-04 17:32] LABS: Rheumatoid Factor < 13.0 IU/mL (<15.0)
[2024-04-04 18:02] LABS: Ferritin 5 ng/mL (10-250)
[2024-04-04 18:17] LABS: Erythrocyte Sedimentation Rate 16 MM/HR (0-20)
[2024-04-09 08:23] LABS: Anti Nuclear Antibody Screen NEGATIVE (NEGATIVE)
[2024-04-09 11:39] LABS: Cyclic Citrullinated Peptide <16 UNITS
== END 2024-04-04 16:38 | disposition home or self-care (01) ==
LOC: HO.LAB 16:37
PROVIDERS: PCP Internal Medicine; Visit Provider Internal Medicine
DX: D64.9 Anemia, unspecified (principal); D69.6 Thrombocytopenia, unspecified; K12.0 Recurrent oral aphthae; M13.0 Polyarthritis, unspecified
CPT/HCPCS: 36415; 82728; 85652; 86038; 86200; 86431

== ENCOUNTER 2024-05-11 08:14 | Outpatient (REF) | payer OTHER, SELFPAY ==
--- NOTE | ~2024-05-11 | MM_ITS ---
EXAMINATION: MM SCREENING DIGITAL BREAST TOMOSYNTHESIS, BILATERAL CLINICAL INFORMATION: Screening. Asymptomatic. COMPARISON: Mammography: Comparison is made with available priors TECHNIQUE: Digital breast mammography with tomosynthesis is performed in both the craniocaudal and mediolateral oblique views along with computer-aided detection (CAD). FINDINGS: There are scattered areas of fibroglandular density (ACR BI-RADS breast composition Category b). There are no significant masses, abnormal calcifications, or other abnormalities. MM/MM tomosynthesis screening BI IMPRESSION: No mammographic evidence of malignancy. ASSESSMENT: BI-RADS BI-RADS 1 - Negative RECOMMENDATION: Routine annual mammography screening. 1 year F/U This examination should not preclude the clinical evaluation of a suspicious palpable abnormality. This patient's information was entered into a reminder system with a target due date for their next mammogram. Electronically signed by: Hiwot Hinojosa DO 05/23/2024 10:01 PM ARTIE
== END 2024-05-11 08:15 | disposition home or self-care (01) ==
LOC: HO.MAMMO 08:14
PROVIDERS: PCP Internal Medicine; Visit Provider Internal Medicine
DX: Z12.31 Encounter for screening mammogram for malignant neoplasm of breast (principal)
CPT/HCPCS: 77063; 77067

== ENCOUNTER → 2024-05-11 08:15 | Outpatient (BNV) | payer OTHER, SELFPAY | PROVIDERS: PCP Internal Medicine; Visit Provider Internal Medicine | DX: Z12.31 Encounter for screening mammogram for malignant neoplasm of breast (principal) | CPT/HCPCS: 77063; 77067 ==

== ENCOUNTER 2024-05-27 09:13 | Outpatient (REF) | payer OTHER, SELFPAY ==
--- NOTE | ~2024-05-27 | US_ITS ---
EXAMINATION: US TRIPLEX LOWER EXTREMITY, BILATERAL CLINICAL INFORMATION: Bilateral lower extremity edema COMPARISON: None available. TECHNIQUE: Color-flow triplex imaging with spectral analysis and compression Doppler were performed on the bilateral lower extremities. FINDINGS: Respiratory variation, normal compression and augmented flow are noted throughout the bilateral lower extremities. The visualized common femoral vein, superficial femoral vein, profunda femoral vein, popliteal vein and midcalf peroneal and posterior tibial venous segments show no evidence of deep venous thrombosis bilaterally. There is no Nguyen's cyst. Benign-appearing inguinal lymph nodes are present with preserved fatty hilum. US/US venous duplex LE BI IMPRESSION: No evidence of deep venous thrombosis involving the bilateral lower extremities. Electronically signed by: Gustabo Hector DO 05/27/2024 10:27 AM EDT
== END 2024-05-27 09:14 | disposition home or self-care (01) ==
LOC: HO.US 09:13
PROVIDERS: PCP Internal Medicine; Visit Provider Internal Medicine Medical Oncology
DX: R60.0 Localized edema (principal)
CPT/HCPCS: 93970

== ENCOUNTER → 2024-06-10 14:46 | Outpatient (BNV) | payer OTHER, SELFPAY | PROVIDERS: PCP Internal Medicine; Visit Provider Radiology Diagnostic Radiology | DX: Z80.0 Family history of malignant neoplasm of digestive organs (principal) | CPT/HCPCS: 74183 ==

== ENCOUNTER 2024-06-10 15:09 | Outpatient (REF) | payer OTHER, SELFPAY ==
--- NOTE | ~2024-06-10 | MR_ITS ---
EXAMINATION: MR ABDOMEN WITHOUT AND WITH CONTRAST CLINICAL INFORMATION: Family history of pancreatic cancer. COMPARISON: Correlated to CT dated January 25, 2018 TECHNIQUE: MR abdomen was performed without and with use of 7.0 mL intravenous gadolinium contrast without reported immediate complications. Postcontrast images are performed in multiphase dynamic sequences. Imaging was performed in 3 planes. FINDINGS: Submitted for interpretation on July 01, 2024. Limited by patient's motion artifact. LIVER, GALLBLADDER, AND BILIARY TREE: Liver measures 19 cm. Multifocal less than 1 cm nonenhancing fluid signal characteristic lesions. The main portal vein and intrahepatic portion of the IVC are patent. The hepatic veins are grossly patent. Gallbladder is absent. Common bile duct measures 6 mm. PANCREAS: There is a 15 mm, septated hypointense T1 and hyperintense T2 with a subtle heterogeneous enhancement centered in the uncinate process. No main pancreatic ductal dilatation. Questionable 4 mm cystic lesion in the anterior margin of the head of the pancreas. SPLEEN: 15 cm. There are multifocal, lobulated heterogeneous hypointense T1 and hyperintense T2, peripheral, discontinuous centripetal enhancement lesions, the largest measures 2 cm. ADRENAL GLANDS: No nodular lesions. KIDNEYS AND URETERS: No renal mass. No hydronephrosis. Normal enhancement pattern throughout the renal parenchyma. GASTROINTESTINAL TRACT: Abundant stool. No intestinal obstruction pattern. No gross ascites. Hiatal hernia.. ABDOMINAL WALL: Small fat-containing umbilical hernia. LYMPH NODES: Nonspecific prominent less than 1 cm lymph nodes, retroperitoneum. VASCULAR: Tortuous and prominent splenic vein. The umbilical vein is not prominent or patent. OSSEOUS STRUCTURES: Multilevel thoracolumbar spondylosis more conspicuous at L4-5, L5-S1 and L3-4. Grade 1 retrolisthesis L4-5 and L5-S1. Cystic lesions in the adnexa, the largest in the right adnexa measures 2.6 cm. MR/MR abdomen wo/w con IMPRESSION: 15 mm septated lesion, uncinate process of the pancreas. Malignancy cannot be excluded. Hepatosplenomegaly. Multiple splenic lesions may correspond to hemangiomata. Prominent tortuous splenic vein. Probable hepatic cysts. Cystic lesions, both adnexa. Hiatal hernia. Small fat-containing umbilical hernia. Multilevel lumbar spondylosis, L3-4 to L5-S1. Electronically signed by: Marquis Parada MD 07/01/2024 08:55 AM EST
[2024-06-10] MEDS: gadobutroL 7.5 ML VIAL IVPUSH (16:28)
== END 2024-06-10 15:10 | disposition home or self-care (01) ==
LOC: HO.MRI 15:09
PROVIDERS: PCP Internal Medicine; Visit Provider Internal Medicine Medical Oncology
DX: M47.814 Spondylosis without myelopathy or radiculopathy, thoracic region (principal); Z80.0 Family history of malignant neoplasm of digestive organs
CPT/HCPCS: 74183; A9585

== ENCOUNTER 2024-07-09 15:31 | Outpatient (AMB) | payer OTHER, SELFPAY ==
[2024-07-09 15:34] VITALS: BMI 30.6
--- NOTE | 2024-07-09 15:34 | A.OFFVIS_ITS ---
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 Today the left LE is larger than the right LE, pt states they switch, one leg is not always bigger than the other. Pt states elevation helps decrease swelling and swelling increases throughout the day. Pt states her feet are now getting cramps. 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 She states it is worse at night and she gets increased pain with activity. Complaints include swelling of lower extremities, cramping, fatigue, and heaviness of the lower extremities. It has been affecting their daily activities including walking and standing. It is noted more so in bilateral legs. Patient denies any previous venous surgery or injections. Patient denies any history of DVT/ PE. Patient denies any history of phlebitis. Trial of compression includes - compression stockings They now present for vascular evaluation regarding their varicose veins. [facility] Medical History Hiatal hernia Iron deficiency anemia Fatty liver Low blood sugar Surgical History Hx of tubal ligation Hx of esophagogastroduodenoscopy Hx of laparoscopic gastric banding Hx of cholecystectomy Hx of gastric bypass Family History Mother Diabetes Pancreas cancer Hypertension Father Heart abnormality Hypertension Social History Household Members: Spouse, Family and Children Housing: House Are you a primary day care center director to a significant other at home: No Do you presently have visiting nurse or other home services: No Patient Tobacco Use Status: Never used Tobacco service: No Current occupational status: employed 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 [employer] Female Reproductive History Menstrual Age of Menarche: 10 Review of Systems Const Reports as per HPI and Denies weakness ENT Reports Normal hearing present and Denies dizziness Card Reports as per HPI, Denies chest pain, Denies chest pain at rest, Denies chest pain with activity, Denies dyspnea and Denies dyspnea on exertion Resp Reports as per HPI, Denies cough, Denies dyspnea and Denies dyspnea on exertion GI Reports as per HPI, Denies abdominal pain, Denies nausea and Denies vomiting Musc Denies numbness Skin/Breast Reports as per HPI, Denies erythema and Denies wounds Neuro Reports Normal hearing present, Denies dizziness, Denies numbness, Denies Sensory deficit (Neuro) and Denies weakness Psych Reports no additional complaints Endo Reports no additional complaints Physical Exam Vital Signs: BMI result Body Mass Index 30.6 Const General: healthy appearing and no acute distress Orientation/consciousness: patient oriented x3 HEENT Head: Yes normal to inspection Ears: hearing grossly normal bilaterally Mouth: Normal oral and palatal mucosa present Resp Effort & Inspection: normal respiratory effort and able to speak in complete sentences Auscultation: clear to auscultation bilaterally Cardio Jugular venous distension: no JVD Rate: regular rate Rhythm: regular rhythm Heart sounds: S1 normal heart sound present and S2 normal heart sound present Bruits: no abdominal aortic bruits, no carotid bruits, no femoral bruits and no renal bruits Peripheral pulses: Peripheral pulses 2+ throughout GI Inspection: Yes normal to inspection Palpation (GI): No Abdominal aortic bruit present Skin General skin exam: no rashes or lesions noted Wounds: no wounds Hair: normal Neuro General: patient oriented x3 Cranial nerves: Yes Normal hearing present Cognition (Neuro): normal cognition Gait exam (Neuro): Normal gait present Motor exam (neuro): 5/5 motor strength present throughout Sensory Exam: No Sensory deficit (Neuro) Extrem Other: Bilateral lower extremities: 2+ peripheral edema. Palpable DP pulses. CEAP: C - 3 E - primary A - superficial P - reflux General: Yes normal to inspection, Yes full ROM, Yes capillary refill normal and Yes normal gait Assessment & Plan Assessment & Plan (1) Varicose veins of both lower extremities with inflammation: Code(s): I83.11 - Varicose veins of right lower extremity with inflammation; I83.12 - Varicose veins of left lower extremity with inflammation Category: Medical Plan: Erin is presenting today for concerns of bilateral lower extremity swelling, worsening, with pain, cramping, fatigue, and heaviness. In short, the patient has evidence of venous insufficiency. I have discussed the pathophysiology with the patient. In addition I have provided informational material regarding venous disease to the patient. We have discussed conservative measures including compression, elevation, and exercise. I have also provided a handout regarding appropriate use of compression stockings and where to purchase good compression stockings as well. I have taken the liberty of ordering venous insufficiency testing with the patient. They will follow up with me after testing. The patient had an opportunity to ask questions regarding the treatment plan. All questions were answered. Imaging studies, laboratory studies and physical exam results were discussed and reviewed in detail. No major barriers to understanding were identified. The patient expressed understanding and agreement with the above treatment plan. The patient is aware they should contact our office by phone for worsening of the current condition or the appearance of new symptoms. Thank you for allowing me to participate in the vascular care of this patient. If you have any questions or concerns regarding the treatment for the above condition please do not hesitate to contact me. The office telephone contact is [phone]. This note is constructed using voice recognition software. While every effort has been made to ensure accuracy, hot air furnace installer and repairer errors may have been included. Thank you for allowing me to participate in the care of your patient. Yours sincerely, BRENDA Mullen Orders: Orders US venous duplex LE BI 1 Week I83.11 - Varicose veins of right lower extremity with inflammation, I83.12 - Varicose veins of left lower extremity with inflammation Coding Level of Care Code New Pt Level 4 (52351) Diagnoses Varicose veins of both lower extremities with inflammation I83.11; I83.12
--- OUTSIDE RECORDS SUMMARY | 2024-07-10 22:24 | XMS_ITS | Patient Health Record ---
Author Organization [facility] Address [address] [place] [address] Care Team Providers Care Roller Maker Name Role Phone Sarah Cardona Primary Care Provider Unavailab Alex Gresham Unavailable [phone] ALLERGIES No Known Allergies REASON FOR REFERRAL No Information MEDICATIONS Medication SIG (Take, Route, Frequency, Duration) Notes Start Date End Date Status Dicyclomine HCl 10 MG 1 or 2 capsules Or ally Every 6 hours as needed for abdominal cramps/discomfort for 30 day(s) 06/21/2022 Active Cholestyramine 4 GM/DOSE 1/2 to 1 scoop in 8 ounces of orange juice or water once or twice a day for diarrhea Orally Once a day or Twice a day for diarrhea for 30 day(s) 06/21/2022 Active IMMUNIZATIONS Vaccine Route Administration Date Status Comme nts Influenza Unknown 02/28/2019 Refused SOCIAL HISTORY Tobacco Use: Social History Observation Description Date Details (start date - stop date) Never Smoker NA - NA Sex Assigned At : Social History Observation Description Sex Assigned At Unknown Tobacco Use/Smoking Question Answer Notes Patient is a nonsmoker Alcohol Screen Question Answer Notes Did you have a drink containing alcohol in the p ast year? 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) Active confirmed 95384179 Problem Encounter for screening for malignant neoplasm of colon (Z12.11) Active confirmed Screening for malignant neoplasm of colon (287799188) Problem Iron deficiency anemia (D50.9) Active confirmed Iron deficiency anemia (83561600) Problem Diarrhea (R19.7) Active confirmed Diarr hea (82259940) Problem Right sided abdomina l pain (R10.9) Active confirmed Right sided abdominal pain (465153812) PLAN OF TREATMENT Pending Test Test Name Order Date LIVER PROFILE 06/21/2022 IRON + IBC (FE) 06/21/2022 FERRITIN 06/21/2022 VITAMIN B12 AND FOLATE 06/21/2022 CBC w DIFF 06/21/2022 CELIAC PANEL #10 06/21/2022 US ABD 02/28/2019 Future Test Test Name Order Date UPPER GI ENDOSCOPY 02/28/2019 COLONOSCOPY 07/02/2020 Insurance Providers Payer Name Payer Address Payer Phone Subscriber Number Group Number Insured Name Patient Relationship to Insured Coverage Start Date Coverage End Date [facility] [address] [place] [address] [phone] [id number] TONI TRINH Self - patient is the insured MEDICAL (GENERAL) HISTORY Medical History History ICD Code Denies [place],DM,CVA,Lung disease,renal dise ase Hx of low blood sugar levels since the g astric bypass Lymphedema in lower extremities History of intermittent thro mbocytopenia--previously followed by Dr. Bowman--imaging studies have described occasional mild splenomegaly, but not on a consistent basis Fatty liver--had a completel y negative liver workup in 2009, including viral serologies, autoimmune studies, iron studies, alpha-1 antitrypsin level, and ceruloplasmin level--imaging studies in 2017 and in 2018 describe a normal-appearing liver, other than fatty liver--an ultrasound with elastography was normal before her gastric bypass--- followup liver ultrasound in 2019 revealed a normal elastography score of F0 and changes of fatty liver, but without any mass Negative upper endoscopy in 2008--no significant changes of reflux, gastric biopsies negative for H. pylori, no portal gastropathy nor varices Iron deficiency in relation to her menses and gastric bypass, although her hemoglobin has basically been normal Negative upper endoscopy Jun revealing a normal gastric pouch and biopsies negative for H. pylori--done by Dr. Metz CT of the abdomen and pelvis in January 2019 describes hepatosplenomegaly and a question of varices in the region of the splenic hilum EGD in 03/2019--small hiatal hernia, normal gastric bypass anastomosis--there was no esophagitis nor Silver's esophagus--there were no varices Negative screening colonoscopy in 07/2020 Surgical History Surgery Date(Month/Year) Gastric bypass 12/2016 at [facility]--lap band w as removed as well Cholecystectomy in Spring 2016 Lap band in 2010 at [facility]
== END 2024-07-09 16:02 | disposition home or self-care (01) ==
PROVIDERS: PCP Internal Medicine; Visit Provider Physician Assistant Surgical
DX: I83.11 Varicose veins of right lower extremity with inflammation (principal); I83.12 Varicose veins of left lower extremity with inflammation
CPT/HCPCS: 99204

== ENCOUNTER → 2024-08-30 13:00 | Outpatient (BNV) | payer OTHER, SELFPAY | PROVIDERS: PCP Internal Medicine; Visit Provider Radiology Diagnostic Radiology | DX: I83.12 Varicose veins of left lower extremity with inflammation (principal); I83.11 Varicose veins of right lower extremity with inflammation | CPT/HCPCS: 93970 ==

== ENCOUNTER 2024-11-21 16:16 | Outpatient (REF) | payer OTHER, SELFPAY ==
[2024-11-21] MEDS: gadobutroL 7.5 ML VIAL IVPUSH (17:28)
--- OUTSIDE RECORDS SUMMARY | 2024-11-21 18:39 | XMS_ITS ---
Author Name [facility] Organization Unknown Encounters Encounter Type Encounter Reason Primary Diagnosis Location Date Ambulatory Headache(784.0) [facility] 09/05/2021 Care Team Organization Name Specialty Phone Email Start Date End Da te [facility] DAVI MCDERMOTT Primary Care 09/05/2021 022
--- OUTSIDE RECORDS SUMMARY | 2024-11-21 18:39 | XMS_ITS | Clinical Summary ---
Author Organization [address] Address [address] [place] [address] Care Team Providers Care Litigation Legal Assistant Name Role Phone Sarah Cardona MD Primary Care Provider [phone] Allergies No known active allergies Active Problems Problem Noted Date Diagnosed Date Severe anemia 09/06/2021 Headache 09/05/2021 Immunizations Name Administration Dates Next Due Influenza, injectable, quadrivalent, preservativ e free 09/06/2021 Social History Tobacco Use Types Packs/Day Years Used Date Smoking Tobacco: Never Assessed PHQ-2 Answer Date Recorded PHQ-2 Total Score 0 09/05/2021 Comments Unknown Sex and Gender Information Value Date Recorded Sex Assigned at Not on file Legal Sex Female 7:03 PM EST Gender Identity Not on file Sexual Orientation Not on file Last Filed Vital Signs Vital Sign Reading Time Taken Comments Blood Pressure 106/67 09/06/2021 1:24 PM EST Pulse 68 09/06/2021 1:24 PM EST Temperature 36.7 ??C (98.1 ??F) 09/06/2021 1:24 PM ES T Respiratory Rate 18 09/06/2021 1:24 PM EST Oxygen Saturation 99% 09/06/2021 1:24 PM EST Inhaled Oxygen Concentration - - Weight 78.9 kg (174 lb) 09/05/2021 11:04 PM EST Height 165.1 cm (5' 5 ) 09/05/2021 11:04 PM EST Body Mass Index 28.96 09/05/2021 11:04 PM EST Plan of Treatment Health Maintenance Due Date Last Done Comments HIV screening 1983 Hepatitis C screening 1988 Tetanus adult (Td q 10,TDAP once) 1990 Cervical cancer screening 1991 Breast cancer screening 2010 Colon cancer screening, Colonoscopy 2015 Pneumococcal Vaccine (50+ years) (1 of 1 - PCV) 2020 Shingles vaccine (Shingrix) (1 of 2 - Shingrix (RZV) 2 Dose Standard Series) 2020 Covid-19 vaccine series (1 - season) 2024 Diabetes screening 09/06/2024 09/06/2021, 09/05/2021 Influenza vaccine 03/31/2025 09/06/2021 Lipid disorder screening 09/06/2026 09/06/2021 RSV Immunization (1 - 1-dose 75+ series) 2045 Meningococcal Vaccine Aged Out No isa sameer eligible based on patient's age to complete this topic Pneumococcal Vaccine (2 - 49 years) Aged Out No longer eligible b ased on patient's age to complete this topic Procedures Procedure Name Priority Date/Time Associated Diagnosis Comments HEMOGLOBIN A1C Routine 09/06/2021 7:03 AM EST LIPID PANEL Routine 09/06/2021 7:03 AM EST from Last 3 Months or Most Recently Relevant to Health Maintenance Results * Hemoglobin A1c (09/06/2021 7:03 AM EST) [facility] Hemoglobin A1c 5.5 4.0 - 5.6 % 09/06/2021 12:35 PM EST [facility] DEPARTMENT OF LABORATORY MEDICINE Comment: Hemoglobin A1c values of 5.7-6.4 % identify individuals with an increased risk for future diabetes and to whom the term pre-diabetes may be applied. ??Hemoglobin A1c values greater than 6.4% on more than one occasion are diagnostic of diabetes. Lowering HbA1c to below 7% is considered to reduce microvascular and neuropathic complications of diabetes. This boronate affinity Hb A1c method provides accurate analytical results in the presence of nearly all Hb variants. Hb F higher than 10% of total Hb may yield falsely low results. Conditions that shorten red cell survival, such as the presence of unstable hemoglobins like Hb SS, Hb CC, and Hb SC, or other causes of hemolytic anemia may yield falsely low results. Iron deficiency anemia may yield falsely high results. Estimated Average Glucose mg/dL 111 mg/dL 09/06/2021 12:35 PM EST [facility] DEPARTMENT OF LABORATORY MEDICINE Comment: Estimated average glucose (eAG) is a calculated value designed to estimate ??the expected average blood glucose level throughout the day from a single ??measurement of ??glycated hemoglobin A1C (HbA1c) and follows the calculation proposed by the [place] [employer] (Diabetes Care 31: 1-6, 2008). It may have less accuracy in children, women and patients with certain erythrocyte disorders. Blood Venipuncture / Unknown 09/06/2021 7:03 AM EST 09/06/2021 7:16 AM EST us Mary Espinoza MD LAB BLOOD ORDERABLES Final Resul t Performing Organization Address [facility]/State/[facility] Co de Phone Number [facility] DEPARTMENT OF LABORATORY MEDICINE [address] [place] [address], [facility] [phone] * (ABNORMAL) Lipid panel (09/06/2021 7:03 AM EST) Cholesterol 116 See Comment mg/dL 09/06/2021 9:23 AM EST [facility] Comment: Total Cholesterol (mg/dL) ?Adults (>18 years) ? Children (<18 years) Desirable ?<200 ? <170 Borderline-High ?200-239 ?170-199 High ? >=240 ?>=200 ? HDL 23(L) >=40 mg/dL 09/06/2021 9:23 [facility] Triglycerides 122 See Comment mg/dL 09/06/2021 9:23 [facility] Comment: Triglycerides (mg/dL) ?Adults (>18 years) ? Children (<18 years) Desirable ?<150 ? Not Established Borderline-High ?150-199 ?Not Established High ? 200-499 ?Not Established ?? Chol/HDL Ratio 5.0 0.0 - 5.0 09/06/2021 9:23 [facility] LDL Calculated 69 See Comment mg/dL 09/06/2021 9:23 AM [facility] Comment: LDL Cholesterol (mg/dL) ?Adults (>18 years) ? Children (<18 years) Desirable ?<100 ? <110 Above Desirable ?100-129 ?Not Established Borderline-High ?130-159 ?110- 129 High ? 160-189 ?>=130 Very High? >=190 ? Not Established Blood Venipuncture / Unknown 09/06/2021 7:03 AM EST 09/06/2021 7:15 AM EST us Mary Espinoza MD LAB BLOOD ORDERABLES Final Resul t Performing Organization Address [facility] Co de Phone Number [facility] [address] [place] [address], [facility] [phone] from Last 3 Months or Most Recently Relevant to Health Maintenance Insurance [employer]CIAL [employer]IC COMMERCIAL [employer]IC COMMERCIAL [employer]IC Advance Directives * Full ACLS (Latest Code Status on File) Date Activated Date Inactivated Comments 09/06/2021 12:56 AM 09/06/2021 10:25 PM Care Teams Litigation Legal Assistant Relationship Specialty Start Date End Date Sarah Cardona MD [address] [place] [phone] PCP - General Internal Medicine 09/05/21
== END 2024-11-21 16:17 | disposition home or self-care (01) ==
LOC: HO.MRI 16:16
PROVIDERS: PCP Internal Medicine; Visit Provider Internal Medicine Medical Oncology
DX: K86.89 Other specified diseases of pancreas (principal)
CPT/HCPCS: 74183; A9585

== ENCOUNTER → 2024-11-21 16:29 | Outpatient (BNV) | payer OTHER, SELFPAY | PROVIDERS: PCP Internal Medicine; Visit Provider Radiology Diagnostic Radiology | DX: K86.2 Cyst of pancreas (principal); R16.2 Hepatomegaly with splenomegaly, not elsewhere classified | CPT/HCPCS: 74183 ==

== ENCOUNTER 2025-04-12 08:54 | Outpatient (REF) | payer OTHER, SELFPAY ==
--- OUTSIDE RECORDS SUMMARY | 2025-04-12 08:57 | XMS_ITS ---
Author Name [facility] Organization Unknown Encounters Encounter Type Encounter Reason Primary Diagnosis Location Date Ambulatory Headache(784.0) [facility] 09/05/2021 Care Team Organization Name Specialty Phone Email Start Date End Da te [facility] DAVI MCDERMOTT Primary Care 09/05/2021 022
--- OUTSIDE RECORDS SUMMARY | 2025-04-12 08:57 | XMS_ITS | Patient Health Record ---
Author Organization [facility] Address [address] [place] [address] Care Team Providers Care Residential Real Estate Assistant Name Role Phone Sarah Cardona Primary Care Provider Unavailab Alex Gresham Unavailable [phone] Allergies No Known Allergies Reason For Referral No Information Medications Medication SIG (Take, Route, Frequency, Duration) Notes [...] for diarrhea for 30 day(s) 06/21/2022 Active Immunizations Vaccine Route Administration Date Status Comme nts Influenza Unknown 02/28/2019 Refused Social History Tobacco Use: Social History Observation Description Date Details (start date - stop date) Never Smoker NA - NA Tobacco Use/Smoking Question Answer Notes Patient is a nonsmoker Alcohol Screen Question Answer Notes Did you have a drink containing alcohol in the p ast year? No Points 0 Interpretation Negative Section Notes: Nonsmoker, no significant al cohol Nonsmoker, no significant al cohol Nonsmoker, no significant al cohol Nonsmoker, no significant al cohol Problems Problem Type SNOMED Code ICD Code Onset Dates Problem Status W/U Status Risk Notes Problem Screening for malignant neoplasm of colon (521156386) Encounter for screening for malignant neoplasm of colon (Z12.11) Active confirmed Problem Diarrhea (10232683) Diarrhea (R19.7) Active confirmed Problem Iron deficiency anemia (72094432) Iron deficiency anemia (D50.9) Active confirmed Problem 227758508 Abnormal CT scan , gastrointestinal tract (R93.3) Active confirmed Problem 421002490 Fatty liver (K76.0) Active confirmed Problem Right sided abdominal pain (071370596) Right sided abdominal pain (R10.9) Active confirmed Problem 59772014 Acute gastroente ritis (K52.9) Active confirmed Problem 927804102 Thrombocytopenia (D69.6) Active confirmed Problem 88654210 Hepatosplenomega ly (R16.2) Active confirmed Problem 22067603 Varices of splee n (I86.8) Active confirmed Plan Of Treatment Pending Test Test Name Order Date LIVER [...] Insured Coverage Start Date Coverage End Date [facility] [address] [place] [address] [phone] [id number] TONI TRINH Self - patient is the insured Medical (General) History Medical History History ICD Code Denies [place],DM,CVA,Lung disease,renal dise ase Hx of low blood [...] antitrypsin level, and ceruloplasmin level--imaging studies in 2016 and in 2018 describe a normal-appearing liver, [...] History Surgery Date(Month/Year) Gastric bypass 12/2016 at [facility]--lap band w as removed as well Cholecystectomy in Spring 2016 Lap band in 2010 at [facility]
--- OUTSIDE RECORDS SUMMARY | 2025-04-12 08:57 | XMS_ITS | Clinical Summary ---
Author Organization [address] Address [address] [address] Care Team Providers Care Package Sorter Name Role Phone Sarah Cardona MD Primary Care Provider Allergies No known active allergies Active Problems Problem Noted Date Diagnosed Date Severe anemia 09/06/2021 Headache 09/05/2021 Immunizations Immunization Administration Dates Next Due Influenza, injectable, quadrivalent, [...] 68 09/06/2021 1:24 PM EST Temperature 36.7 C (98.1 F) 09/06/2021 1:24 PM EST Respiratory Rate 18 09/06/2021 1:24 PM EST [...] Shingrix (RZV) 2 Dose Standard Series) 2020 Diabetes screening 09/06/2024 09/06/2021, 09/05/2021 Covid-19 vaccine series (1 - season) 2025 Influenza vaccine 03/31/2025 09/06/2021 Lipid disorder screening 09/06/2026 09/06/2021 RSV Immunization (1 - 1-dose 75+ series) 2045 Meningococcal B Vaccine Aged Out No l onger eligible based on patient's age to complete this topic Meningococcal Vaccine Aged Out No isa sameer eligible based on patient's age to complete this topic Procedures Procedure Name Priority Date/Time Associated Diagnosis Comments HEMOGLOBIN A1C Routine 09/06/2021 7:03 AM EST LIPID PANEL Routine 09/06/2021 7:03 AM EST from Last 3 Months or Most Recently Relevant to Health Maintenance Results * Hemoglobin A1c (09/06/2021 7:03 AM EST) [facility] Hemoglobin A1c 5.5 4.0 - 5.6 % 09/06/2021 12:35 PM EST [facility] DEPARTMENT OF LABORATORY MEDICINE Comment: Hemoglobin A1c values of 5.7-6.4 % identify individuals with an increased risk for future diabetes and to whom the term pre-diabetes may be applied. Hemoglobin A1c values greater than 6.4% on more [...] Glucose mg/dL 111 mg/dL 09/06/2021 12:35 PM [facility] DEPARTMENT OF LABORATORY MEDICINE Comment: Estimated average glucose (eAG) is a calculated value designed to estimate the expected average blood glucose level throughout the day from a single measurement of glycated hemoglobin A1C (HbA1c) and follows the calculation proposed by the [place] Diabetes [employer] (Diabetes Care 31: 1-6, 2008). It may have less accuracy in children, women and patients with certain erythrocyte disorders. Blood Venipuncture / Unknown 09/06/2021 7:03 AM EST 09/06/2021 7:16 AM EST us Mary Espinoza MD LAB BLOOD ORDERABLES Final Resul t Performing Organization Address City/State/[facility] Co de Phone Number [facility] DEPARTMENT OF LABORATORY MEDICINE [address] [place] [address] * (ABNORMAL) Lipid panel (09/06/2021 7:03 AM EST) Cholesterol 116 See Comment mg/dL 09/06/2021 9:23 AM [facility] Comment: Total Cholesterol (mg/dL) Adults (>18 years) Children (<18 years) Desirable <200 <170 Borderline-High 200-239 170-199 High >=240 >=200 HDL 23(L) >=40 mg/dL 09/06/2021 9:23 AM [facility] Triglycerides 122 See Comment mg/dL 09/06/2021 9:23 AM [facility] Comment: Triglycerides (mg/dL) Adults (>18 years) Children (<18 years) Desirable <150 Not Established Borderline-High 150-199 Not Established High 200-499 Not Established Chol/HDL Ratio 5.0 0.0 - 5.0 09/06/2021 9:23 AM EST [facility] LDL Calculated 69 See Comment mg/dL 09/06/2021 9:23 AM [facility] Comment: LDL Cholesterol (mg/dL) Adults (>18 years) Children (<18 years) Desirable <100 <110 Above Desirable 100-129 Not Established Borderline-High 130-159 110-129 High 160-189 >=130 Very High >=190 Not Established Blood Venipuncture / Unknown 09/06/2021 7:03 AM EST 09/06/2021 7:15 AM EST Mary Espinoza MD LAB BLOOD ORDERABLES Final Resul t [facility] [address] [place] [address], [facility] [phone] from Last 3 Months or Most Recently Relevant to Health Maintenance Insurance COMMERCIAL GENERIC COMMERCIAL GENERIC COMMERCIAL GENERIC Advance Directives * Full ACLS (Latest Code Status on File) Date Activated Date Inactivated Comments 09/06/2021 12:56 AM 09/06/2021 10:25 PM Care Teams Package Sorter Relationship Specialty Start Date End Date Sarah Cardona MD PCP - General Internal Medicine 09/05/21
[2025-04-12 09:06] LABS: MANUAL DIFF FLAG NO
[2025-04-12 09:51] LABS: Hematocrit 32.4 % (37.0-47.0); Hemoglobin 11.1 g/dl (12.0-16.0); Imm Gran Abs Auto 0.02 X10*3/uL (0.00-0.03); Imm Gran Pct Auto 0.4 % (0.0-0.4); Lymphocytes Absolute Auto 0.9 X10*3/uL (1.2-4.9); Mean Corpuscular HGB Conc 34.3 g/dl (31.0-35.0); Mean Corpuscular Hemoglobin 26.2 pg (27.0-33.0); Mean Corpuscular Volume 76.6 fL (80.0-98.0); NRBC Abs Auto 0.000 X10*3/uL (0.0-0.012); NRBC Pct Auto 0.0 /100WBC (0.0-0.2); Red Blood Count 4.23 X10*6/uL (4.20-5.50); White Blood Count 4.9 X10*3/uL (4.8-10.8)
[2025-04-12 09:52] LABS: Platelet Count 58 X10*3/uL (160-400)
[2025-04-12 10:29] LABS: Alanine Aminotransferase 26 U/L (0-31); Albumin Level 4.2 g/dL (3.5-5.0); Alkaline Phosphatase 73 U/L (39-117); Anion Gap 13 (12-20); Aspartate Amino Transferase 29 U/L (5-31); Blood Urea Nitrogen 13 mg/dL (9-16); Calcium 8.4 mg/dL (8.4-10.2); Carbon Dioxide 25 mmol/L (22-29); Chloride 108 mmol/L (96-108); Estimated Glomerular Filt Rate > 60; Potassium 3.9 mmol/L (3.3-5.1); Sodium 142 mmol/L (135-145); Total Protein 6.1 g/dL (6.5-8.0)
[2025-04-12 10:44] LABS: Ferritin 11 ng/mL (10-250)
== END 2025-04-12 08:55 | disposition home or self-care (01) ==
LOC: HO.LAB 08:54
PROVIDERS: PCP Internal Medicine; Visit Provider Internal Medicine
DX: D50.8 Other iron deficiency anemias (principal); I89.0 Lymphedema, not elsewhere classified; R19.7 Diarrhea, unspecified; Z98.84 Bariatric surgery status
CPT/HCPCS: 36415; 80053; 82728; 85025

== ENCOUNTER 2025-05-17 08:53 | Outpatient (REF) | payer OTHER, SELFPAY ==
--- NOTE | ~2025-05-17 | MM_ITS ---
EXAMINATION: MM SCREENING DIGITAL BREAST TOMOSYNTHESIS, BILATERAL CLINICAL INFORMATION: Screening. Asymptomatic. COMPARISON: Mammography: Comparison is made with available priors TECHNIQUE: Digital breast mammography with tomosynthesis is performed in both the craniocaudal and mediolateral oblique views along with computer-aided detection (CAD). FINDINGS: There are scattered areas of fibroglandular density. There are no significant masses, abnormal calcifications, or other abnormalities. MM/MM tomosynthesis screening BI IMPRESSION: No mammographic evidence of malignancy. ASSESSMENT: BI-RADS Category 1: Negative RECOMMENDATION: Routine annual mammography screening. 1 year F/U This examination should not preclude the clinical evaluation of a suspicious palpable abnormality. This patient's information was entered into a reminder system with a target due date for their next mammogram. Electronically signed by: Hiwot Hinojosa DO 05/20/2025 12:39 PM EDT
--- OUTSIDE RECORDS SUMMARY | 2025-05-17 08:55 | XMS_ITS | Patient Health Record ---
Author Organization [facility] Address [address] [place] [phone] Care Team Providers Care Wholesaler Name Role Phone Sarah Cardona Primary Care Provider Unavailab Alex Gresham Unavailable [phone] Allergies No Known Allergies Reason For Referral No Information Medications Medication SIG (Take, Route, Frequency, Duration) Notes Start Date End Date Status Dicyclomine HCl 10 MG 1 or 2 capsules Or ally Every 6 hours as needed for abdominal cramps/discomfort; Duration: 30 day(s) 06/21/2022 Active Cholestyramine 4 GM/DOSE 1/2 to 1 scoop in 8 ounces of orange juice or water once or twice a day for diarrhea Orally Once a day or Twice a day for diarrhea; Duration: 30 day(s) 06/21/2022 Active Immunizations Vaccine Route [...] Problem Screening for malignant neoplasm of colon (625087315) Encounter for screening for malignant neoplasm of colon (Z12.11) Active confirmed Problem Diarrhea (69477614) Diarrhea (R19.7) Active con firmed Problem Iron deficiency anemia (76595473) Iron deficiency anemia (D50.9) Active confirmed Problem Imaging of gastrointestinal tract abnormal (311915300) Abnormal CT scan, gastrointestinal tract (R93.3) Active confirmed Problem Fatty liver (711270816) Fatty liver (K76.0) Active confirmed Problem Right sided abdominal pain (361329532) Right sided abdominal pain (R10.9) Active confirmed Problem Acute gastroenteritis (49147530) Acute gastroenteritis (K52.9) Active confirmed Problem Thrombocytopenia (642033005) Thrombocytopenia (D69.6) Active confirmed Problem Hepatosplenomegaly (00947247) Hepatosplenomegaly (R16.2) Active confirmed Problem Varices of splee n (I86.8) Active confirmed [...] Insured Coverage Start Date Coverage End Date [facility] [address] [place] [phone] [phone] [id number] TONI TRINH Self - patient is the insured Medical (General) History Medical History History ICD Code Denies [place],DM,CVA,Lung disease,renal dise ase Hx of low blood [...] History Surgery Date(Month/Year) [place] [facility] [place] as removed as well Cholecystectomy in Spring 2016 Lap band in 2010 at [facility]
--- OUTSIDE RECORDS SUMMARY | 2025-05-17 08:55 | XMS_ITS | Clinical Summary ---
Author Organization [address] Address [address] [place] [id number] Care Team Providers Care Business Information Consultant Name Role Phone Sarah Cardona MD Primary Care Provider [phone] Allergies No known active allergies Active Problems [...] Series) 2020 Diabetes screening 09/06/2024 09/06/2021, 09/05/2021 Influenza vaccine 02/28/2025 09/06/2021 Covid-19 vaccine series (1 - season) 2025 Lipid disorder screening 09/06/2026 09/06/2021 RSV Immunization [...] * Hemoglobin A1c (09/06/2021 7:03 AM EST) [facility] Hemoglobin A1c 5.5 4.0 - 5.6 % 09/06/2021 12:35 PM EST [facility] Comment: Hemoglobin A1c [...] Glucose mg/dL 111 mg/dL 09/06/2021 12:35 PM [facility] Comment: Estimated average glucose (eAG) is a calculated value designed to estimate the expected average blood glucose level throughout the day from a single measurement of glycated hemoglobin A1C (HbA1c) and follows the calculation proposed by the [place] [employer] (Diabetes Care 31: 1-6, 2008). It may have less accuracy in children, women and patients with certain erythrocyte disorders. Blood Venipuncture / Unknown 09/06/2021 7:03 AM EST 09/06/2021 7:16 AM EST us Mary Espinoza MD LAB BLOOD ORDERABLES Final Resul t Performing Organization Address City/State/[facility] Co de Phone Number [facility] [address] [place] [address] * (ABNORMAL) Lipid panel (09/06/2021 7:03 AM EST) Cholesterol 116 See Comment mg/dL 09/06/2021 9:23 AM [facility] Comment: Total Cholesterol (mg/dL) Adults (>18 years) Children (<18 years) Desirable <200 <170 Borderline-High 200-239 170-199 High >=240 >=200 HDL 23(L) >=40 mg/dL 09/06/2021 9:23 AM [facility] Triglycerides 122 See Comment mg/dL 09/06/2021 9:23 AM [facility] Comment: Triglycerides (mg/dL) Adults (>18 years) Children (<18 years) Desirable <150 Not Established Borderline-High 150-199 Not Established High 200-499 Not Established Chol/HDL Ratio 5.0 0.0 - 5.0 09/06/2021 9:23 AM EST [facility] LDL Calculated 69 See Comment mg/dL 09/06/2021 9:23 AM [facility] Comment: LDL Cholesterol (mg/dL) Adults (>18 years) Children (<18 years) Desirable <100 <110 Above Desirable 100-129 Not Established Borderline-High 130-159 110-129 High 160-189 >=130 Very High >=190 Not Established Blood Venipuncture / Unknown 09/06/2021 7:03 AM EST 09/06/2021 7:15 AM EST Mary Espinoza MD LAB BLOOD ORDERABLES Final Resul t [facility] [address] [place] [address], [facility] [phone] from Last 3 Months or Most Recently Relevant to Health Maintenance Insurance [employer] Advance Directives * Full ACLS (Latest Code Status on File) Date Activated Date Inactivated Comments 09/06/2021 12:56 AM 09/06/2021 10:25 PM Care Teams Business Information Consultant Relationship Specialty Start Date End Date Sarah Cardona MD PCP - General Internal Medicine 09/05/21
== END 2025-05-17 08:54 | disposition home or self-care (01) ==
LOC: HO.MAMMO 08:53
PROVIDERS: PCP Internal Medicine; Visit Provider Internal Medicine
DX: Z12.31 Encounter for screening mammogram for malignant neoplasm of breast (principal)
CPT/HCPCS: 77063; 77067

== ENCOUNTER → 2025-05-17 09:15 | Outpatient (BNV) | payer OTHER, SELFPAY | PROVIDERS: PCP Internal Medicine; Visit Provider Internal Medicine | DX: Z12.31 Encounter for screening mammogram for malignant neoplasm of breast (principal) | CPT/HCPCS: 77063; 77067 ==